=== PATIENT | female | born 2000 | race Caucasian/White ===

== ENCOUNTER 2021-09-12 13:41 | Emergency (ER) | payer SELFPAY ==
[~2021-09-12] VITALS: Ht 162.6 cm; Wt 72.7 kg
[2021-09-12 14:09] VITALS: BP 114/71
[2021-09-12] MEDS ORDERED: ACETAMINOPHEN 325 MG TABLET PO ONE (14:45)
[2021-09-12] MEDS ORDERED: LIDOCAINE 1%/EPI 1:200,000/PF 30 ML VIAL SQ ONE (15:00)
[2021-09-12] MEDS ORDERED: PERTUSS(ACELL),DIPH,TET VAC/PF 0.5 ML SYRINGE IM. ONE (15:00)
[2021-09-12] MEDS ORDERED: BACITRACIN 0.9 GM PACKET OINTMENT TP ONE (16:00)
[2021-09-12] MEDS ORDERED: ONDANSETRON HCL 4 MG TABLET PO ONE (16:30)
== END 2021-09-12 16:58 | disposition home or self-care (01) ==
LOC: EMS 13:44
DX: S81.011A Laceration without foreign body, right knee, initial encounter (principal); W25.XXXA Contact with sharp glass, initial encounter; Y93.89 Activity, other specified; Y92.89 Other specified places as the place of occurrence of the external cause; Y99.8 Other external cause status
CPT/HCPCS: 12002; 73562; 90471; 90715; 99283; J3490; Q0162